=== PATIENT | female | born 1970 | race Caucasian/White ===

== ENCOUNTER → 2016-08-25 | Outpatient (CLI) | payer OTHER ==
[~2016-08-25] VITALS: Ht 162.6 cm; Wt 134.7 kg
[~2016-08-25] MED LIST: CLON1TAB PO; ERGO1CAP10 PO; FURO20 PO; INSULIN HUMAN REGULAR 1,000 UNITS/10 ML VIAL SQ PRN; LACTATED RINGER'S 1000 ML IV SCH; LEVO.125 PO; LEVO.15 PO; METOPROLOL TARTRATE 25 MG TAB PO PRN; NEUR600T PO; PROPOFOL 200 MG/20 ML AMP IV ONE; PROZ40CA PO; SODIUM CHLORID 0.9% 500 ML IV SCH; ZYPR5TAB PO
[2016-08-25 14:30] VITALS: BP 143/87; PULSE 81; RESP 20; TEMP 97.2; O2SAT 96
[2016-08-25 15:55] VITALS: TEMP 97.8
--- NOTE | 2016-08-25 16:09 | PD.PROCEDR ---
GI Procedure PROCEDURE PERFORMED Colonoscopy INDICATION FOR PROCEDURE Family history of colon cancer and rectal bleeding PROCEDURE: The procedure, risks and benefits were discussed with Ms. Russo and informed consent was obtained. Anesthesia sedated her with Diprivan. She was placed in the left lateral decubitus position. Colonoscopy: The Pentax videoscope was introduced through the rectum and advanced to cecum where the ileocecal valve and appendiceal orifice were identified. Retroflexion was performed in the rectum. Colonic prep was fair FINDINGS: Colonic withdrawal time greater than 6 minutes as the scope was slowly withdrawn colonic mucosa was carefully inspected this was noted to be unremarkable and within normal limits all the way retroflexion revealed internal hemorrhoids small in rectal examination was otherwise unremarkable ESTIMATED BLOOD LOSS: None SPECIMENS REMOVED: None COMPLICATIONS: None IMPRESSION: Internal hemorrhoids otherwise normal colonoscopy PLAN: High-fiber diet Colonoscopy in 5 years Ozzie Chacon MD Aug 25, 2016 16:09
[2016-08-25 16:15] VITALS: BP 122/69; PULSE 56; RESP 18; O2SAT 99
== END ==
LOC: HEND 13:39
PROVIDERS: ATTEND Internal Medicine Gastroenterology
DX: K64.8 Other hemorrhoids (principal); K62.5 Hemorrhage of anus and rectum; D64.9 Anemia, unspecified; E66.01 Morbid (severe) obesity due to excess calories; Z68.43 Body mass index [BMI] 50.0-59.9, adult; Z98.84 Bariatric surgery status; Z80.0 Family history of malignant neoplasm of digestive organs